=== PATIENT | male | born 2000 | race Caucasian/White ===

== ENCOUNTER 2020-04-19 15:36 | Emergency (ER) | END 2020-04-19 16:45 | disposition left against medical advice (07) | LOC: ER 15:36 | DX: Z53.21 Procedure and treatment not carried out due to patient leaving prior to being seen by health care provider (principal) ==

== ENCOUNTER 2020-04-19 19:11 | Emergency (ER) | payer SELFPAY ==
--- NOTE | 2020-04-19 19:38 | ER Document Report ---
ED Oral Problem - General Chief Complaint: Toothache Stated Complaint: TOOTHACHE Time Seen by Provider: 04/19/20 19:31 Mode of Arrival: Ambulatory Information source: Patient Notes: 20-year-old male presented to ED for an infected broken top left wisdom tooth. He does have redness and swelling to the gums around the tooth. He does have gingivitis. He states it has been hurting for months intermittently but today it has been constant and throbbing. He took some pictures of it this morning. He states the pain got worse throughout the day. Patient is alert oriented respirations regular and unlabored speaking in full sentences. I have explained to the patient that we do not pull teeth in the emergency room. We will treat him with antibiotics ibuprofen and viscous lidocaine. He will need to make a dental appointment and is possible to have this tooth removed. Constitutional: Negative for fever. HENT: Pain and swelling to the top left wisdom tooth. The tooth is cracked. He is not sure how long its been cracked. He states it has been hurting for months but much worse today. There is inflammation around the tooth. There is swelling around the tooth. Eyes: Negative for visual changes. Cardiovascular: Negative for chest pain. Respiratory: Negative for shortness of breath. Gastrointestinal: Negative for abdominal pain, vomiting or diarrhea. Genitourinary: Negative for dysuria. Musculoskeletal: Negative for back pain. Skin: Negative for rash. Neurological: Negative for headaches, weakness or numbness. 10 point ROS negative except as marked above and in HPI. VITAL SIGNS: Within normal limits. GENERAL: No acute distress, non-toxic appearance. HEAD: Normal with no signs of head trauma. EYES: PERRLA, EOMI, conjunctiva normal, no discharge. EARS: Hearing grossly intact. NOSE: Normal. Dental decay around the tooth THROAT: Oropharynx is normal. NECK: Normal range of motion, no tenderness, supple, no lymphadenopathy, No adenopathy, no JVD. CHEST: Clear breath sounds bilaterally. No wheezes, rales, or rhonchi. CARDIAC: Regular rate and rhythm. S1 and S2, without murmurs, gallops, or rubs. VASCULAR: No Edema. Peripheral pulses normal and equal in all extremities. ABDOMEN: Normal and soft with no tenderness, no masses or pulsatile masses. GASTROINTESTINAL: Bowel sounds normal GENITOURINARY: Normal, No tenderness LYMPATHTIC: No lymphadenopathy noted. MUSCULOSKELETAL: Good range of motion of all major joints. Extremities without clubbing, cyanosis or edema. NEUROLOGICAL: Alert and oriented x 3. No focal sensory or strength deficits. Speech normal. Follows commands appropriately. PSYCHIATRIC: Normal Affect, judgement and mood. SKIN: Normal appearance with no rashes or lesions. - HPI Patient complains to provider of: Toothache Onset: Other - Months much worse today Quality of pain: Sharp, Throbbing Severity: Moderate Pain Level: 4 Associated symptoms: Toothache Worsened by: Other - Smoking or anything cold Relieved by: Nothing Similar symptoms previously: Yes Recently seen / treated by doctor/dentist: No - Related Data Allergies/Adverse Reactions: No Known Allergies Allergy (Verified 04/19/20 19:36) Past Medical History - General Information source: Patient - Social History Smoking Status: Former Smoker - Uses vapor cigarette Frequency of alcohol use: None Drug Abuse: None 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 Lives with: Family Family History: Reviewed & Not Pertinent Patient has suicidal ideation: No Patient has homicidal ideation: No - Past Medical History Cardiac Medical History: Reports: None Pulmonary Medical History: Reports: None EENT Medical History: Reports: None Neurological Medical History: Reports: None Endocrine Medical History: Reports: None Renal/ Medical History: Reports: None Malignancy Medical History: Reports None GI Medical History: Reports: None Musculoskeletal Medical History: Reports Hx Musculoskeletal Deformity, Reports Hx Musculoskeletal Trauma Skin Medical History: Reports None Psychiatric Medical History: Reports: None Traumatic Medical History: Reports: Hx Fractures - Pelvis, right femur, left hip Infectious Medical History: Reports: None Past Surgical History: Reports: Hx Orthopedic Surgery - Immunizations Immunizations up to date: Yes Hx Diphtheria, Pertussis, Tetanus Vaccination: Yes - 2019 Physical Exam - Vital signs Vitals: Temp Pulse Resp BP Pulse Ox 98.6 F 78 20 135/84 H 98 04/19/20 19:41 04/19/20 19:41 04/19/20 19:41 04/19/20 19:41 04/19/20 19:41 Course - Re-evaluation Re-evalutation: 04/19/20 19:42 Presentation is most consistent with likely an infected tooth. Airway is patent. Vitals within normal limits. Patient is able swallow without any difficulty. There is no significant facial swelling. No evidence of Murtaza angina, apical abscess, or airway obstruction. Patient will be started on antibiotics. I've instructed to follow-up with dentistry as earliest ability for definitive management. At this time will discharge with return precautions and follow-up recommendations. Verbal discharge instructions given a the bedside and opportunity for questions given. Medication warnings reviewed. Patient is in agreement with this plan and has verbalized understanding of return precautions and the need for primary care follow-up in the next 24-72 hours. - Vital Signs Vital signs: Temp Pulse Resp BP Pulse Ox 98.6 F 78 20 135/84 H 98 04/19/20 19:41 04/19/20 19:41 04/19/20 19:41 04/19/20 19:41 04/19/20 19:41 Discharge - Discharge Clinical Impression: Pain due to dental caries Condition: Stable Disposition: HOME, SELF-CARE Additional Instructions: TOOTHACHE: Your pain is due to dental decay. The tooth must be repaired in order for you to feel better. You will, therefore, be referred to a dentist. We do not have dentists on the staff at [facility]. Severe swelling or drainage around a tooth usually means a dental abscess. This also requires evaluation and treatment by the dentist, but antibiotics may be prescribed while awaiting dental treatment. You should be rechecked immediately if you develop major swelling of the face, increasing pain, a lump in the jaw or gums, headache, difficulty swallowing, or fever. PENICILLIN V K: You have been given a prescription for Penicillin VK. Your physician has determined that this is the best antibiotic for your condition. Pen VK can be taken with meals, however more of the antibiotic gets into the bloodstream if it's taken on an empty stomach. Penicillin usually has no side effects. However, allergy to penicillins is common. If you have had an allergic reaction to any drug of the penicillin family, you should never take any other penicillin. Notify your doctor at once if you develop hives, itching, swelling, faintness, or shortness of breath. Ibuprofen Ibuprofen is an excellent, safe drug for pain control. In addition, it has potent antiinflammatory effects which are beneficial, especially in the treatment of injuries, arthritis, or tendonitis. It's best to take ibuprofen with food. Persons with ulcer disease or allergy to aspirin should notify their physician of this before taking ibuprofen. Take the medication exactly as prescribed. Don't take additional doses unless instructed to do so by your doctor. If you develop wheezing, shortness of breath, hives, faintness, stomach pain, vomiting, or dark black stools, return for re-evaluation at once. You have been given a syringe of viscous lidocaine. Please place a small amount of this on your finger and then apply it to the tooth every 4 hours. If you do it more often than every 4 hours you can erode the skin on your gums. It is very fast acting lidocaine. It is not oral gel it is actually lidocaine. It does not taste good and it can numb your gums and tongue but will numb the area that is hurting. Please be careful that you do not chew your gums. Every time you suck on your vapor or suck on a straw you are pulling air straight across this open nerve. Please do not use your vapor cigarette or suck on a straw until this tooth is removed. FOLLOW-UP CARE: You have been referred for follow-up care to the dentists listed below. Call the dentists office for an appointment as you were instructed or within the next two days. If you experience worsening or a significant change in your symptoms, notify the physician immediately or return to the Emergency Department at any time for re-evaluation. [facility] [address] [place] [address] [facility] [address] [facility] [address] [facility] [address] [facility] [email or web address] [address] [place] [address] Wednesday- 8:00am to 5:00 pm Will see patients from other [facility]. Charges based on income and family size and accepts Medicare, Medicaid, and Insurances Will pull molars [facility]. [id number] Hours of Operation 8:00 am - 4:30 pm weekdays The following dental offices accept Medicaid: [facility] Dr. Richardson Dr. Alcaraz Dr. Solis Dr. Vick Deon Ballesteros, [place], and [facility] oral surgery Dr. Marley ([place]) Dr. Ren ([place]) [facility] Drs. Sparks ([place]) Dr. Díaz ([place]) [facility] Dr. Austin ([place]) Drs. Castellano and ([place]) Medicaid Care Line Prescriptions: Penicillin V Potassium [Penicillin Vk 500 mg Tablet] 500 mg PO BID #20 tablet Forms: Elevated Blood Pressure, Smoking Cessation Education
[2020-04-19] MEDS ORDERED: PENICILLIN V POTASSIUM 500 MG TABLET PO ONE (19:39)
[2020-04-19] MEDS ORDERED: LIDOCAINE 2% VISCOUS SOLN 15 ML UDCUP PO ONE (19:39)
[2020-04-19] MEDS ORDERED: IBUPROFEN 600 MG TABLET PO ONE (19:39)
[2020-04-19 19:42] VITALS: BP 135/84
== END 2020-04-19 19:52 | disposition home or self-care (01) ==
LOC: ER 19:11
DX: K02.9 Dental caries, unspecified (principal)
CPT/HCPCS: 99283; J3490